=== PATIENT | male | born 1965 | race Caucasian/White ===

== ENCOUNTER → 2021-08-06 | Outpatient (CLI) | payer OTHER ==
--- NOTE | 2021-08-06 13:11 | RAD ---
US TESTICULAR History: Reason: LT TESTICULAR PAIN / Spl. Instructions: / History: Comparison: None. Technique: Multiple grayscale, color flow Doppler and Doppler spectral analysis images of the scrotum are obtained. Findings: Right testicle measures 3.7 x 2.8 x 1.5 cm. Right testicle demonstrates normal parenchymal echogenic ity. Right epididymis is unremarkable. Normal Doppler flow to the right testicle. Left testicle measures 2.9 x 2.6 x 1.9 cm. Left testicle demonstrates normal parenchymal echogenici ty. Left epididymis is unremarkable. Normal Doppler flow to the left testicle. Minimal right hydrocele. Left varicocele. No scrotal hyperemia or swelling. IMPRESSION: 1. Left varicocele. Electronically signed by: Duane Bertrand DO (08/06/2021 1:08 PM) [facility]
== END ==
LOC: US 11:47
PROVIDERS: ATTEND Family Medicine
DX: I86.1 Scrotal varices (principal); N43.3 Hydrocele, unspecified
CPT/HCPCS: 76870